=== PATIENT | female | born 1960 | race Caucasian/White ===

== ENCOUNTER 2022-03-15 22:00 | Emergency (ER) | payer BC ==
[2022-03-15] MEDS ORDERED: Lidocaine 1% w/Epinephrine 1:100K 20 ML VIAL ONE (22:49)
[2022-03-15] MEDS ORDERED: cefTRIAXone\\ROCEPHIN 1 GM VIAL ONE (23:18)
== END 2022-03-15 23:40 | disposition home or self-care (01) ==
LOC: CSHERS 22:00
DX: L02.214 Cutaneous abscess of groin (principal); E11.9 Type 2 diabetes mellitus without complications; E03.9 Hypothyroidism, unspecified; E78.5 Hyperlipidemia, unspecified
CPT/HCPCS: 10060; J0696

== ENCOUNTER 2022-05-07 11:38 | Outpatient (CLI) | payer BC ==
[~2022-05-07 11:38] MED LIST: Iopamidol 300 61% 100 ML VIAL FS ONE
== END 2022-05-07 11:39 | disposition home or self-care (01) ==
LOC: CSHCT 11:38
PROVIDERS: ATTEND Internal Medicine
DX: R10.32 Left lower quadrant pain (principal)
CPT/HCPCS: 74177; 82565; Q9967

== ENCOUNTER 2022-11-25 12:26 | Outpatient (CLI) | payer BC | END 2022-11-25 12:27 | disposition home or self-care (01) | LOC: CSHMAMMO 12:26 | PROVIDERS: ATTEND Internal Medicine | DX: Z12.31 Encounter for screening mammogram for malignant neoplasm of breast (principal); Z80.3 Family history of malignant neoplasm of breast | CPT/HCPCS: 77063; 77067 ==

== ENCOUNTER 2023-05-11 13:11 | Outpatient (CLI) | payer BC | END 2023-05-11 13:12 | disposition home or self-care (01) | LOC: CSHULT 13:11 | PROVIDERS: ATTEND Internal Medicine | DX: R01.1 Cardiac murmur, unspecified (principal); R93.1 Abnormal findings on diagnostic imaging of heart and coronary circulation | CPT/HCPCS: 93306 ==

== ENCOUNTER 2023-10-31 15:55 | Outpatient (CLI) | payer BC | END 2023-10-31 15:56 | disposition home or self-care (01) | LOC: CSHRAD 15:55 | PROVIDERS: ATTEND Internal Medicine Gastroenterology | DX: R79.89 Other specified abnormal findings of blood chemistry (principal); Z86.010 Personal history of colon polyps; K51.90 Ulcerative colitis, unspecified, without complications | CPT/HCPCS: 71046 ==

== ENCOUNTER 2024-01-10 15:17 | Outpatient (CLI) | payer BC | END 2024-01-10 15:18 | disposition home or self-care (01) | LOC: CSHMRI 15:17 | PROVIDERS: ATTEND Internal Medicine | DX: R41.3 Other amnesia (principal) | CPT/HCPCS: 70551 ==